=== PATIENT | male | born 1995 | race African-American/Black ===

== ENCOUNTER 2024-04-04 10:05 | Emergency (ER) | payer BC, SELFPAY ==
[2024-04-04 10:21] VITALS: BP 146/86
--- NOTE | 2024-04-04 12:51 | ED.GENMED ---
History of Present Illness
General
Chief Complaint: Heart Rate Problem
Source: patient
Time Seen by Provider: 04/04/24 11:41
Travel History
Have you had any contact with someone who has COVID-19?: No
Do you have any symptoms of coronavirus? Fever > 100 degrees, chills, cough, shortness of breath, sore throat, loss of taste or smell, muscle aches, or headache?: No
History of Present Illness
History of Present Illness:
28-year-old gentleman presents to the emergency room complaining of skipped beats and irregular heartbeat. Patient has been experiencing the symptoms for the past 3 to 4 days. They are a bit more prominent at night. He denies any chest pain or
shortness of breath. He does not recall ever having any episodes like this before. He does drink a lot of caffeinated products.
Past History
Past History
ED Past Medical History: Asthma
ED Past Surgical History: None
Social History
Tobacco: Non-smoker
Alcohol: None
Drug: None
Phy Exam
Physical Exam
Physical Exam:
General: Awake, Alert, Oriented X3. No acute distress.
Vitals: unremarkable
Head: Atraumatic
Eyes: Pupils equal, EOMI
Throat: Airway intact, no exudates
Neck: Trachea midline
Lungs: Clear and equal b/l
Heart: Regular rate, no murmurs
Abd: Soft, Nontender, No pulsatile mass
Neuro: Nonfocal
Skin: Warm, dry, no rash
Extremities: pulses equal b/l, no edema
Course
Orders/Labs/Results
Orders:
Orders
04/04/24 10:07
ECG [Electrocardiogram (*1)] Urgent
Reason for Study: Palpitations
04/04/24 10:08
EKG- Treatment ONCE
04/04/24 12:50
Cardiac Monitoring- Treatment ONCE
Basic Metabolic Panel Urgent
Magnesium Urgent
TSH Reflex To Free T4 Urgent
Vital Signs
Initial and Last Documented VS:
Initial Vital Signs
Temp Pulse BP Pulse Ox
98.9 F 73 146/86 99
04/04/24 10:21 04/04/24 10:21 04/04/24 10:21 04/04/24 10:21
Last Documented Vital Signs
Temp Pulse BP Pulse Ox
98.9 F 73 146/86 99
04/04/24 10:21 04/04/24 10:21 04/04/24 10:21 04/04/24 10:21
*EKG
Interpreted by ED Provider?: Yes
Interpretation: normal
Comparison EKG: no comparison EKG present
Heart Rate: 70
Rate: normal
Rhythm: sinus
[place]: normal axis
Interval: normal interval
QRS Pattern: normal QRS
Ischemia: no ischemia
*Label Sewer Interpretation
Rate: normal
Interpretation: normal
Rhythm: sinus
*Critical Care Note
Total Time (30-74mins, 75-104mins- exclusive of procedures): Not Applicable
ED Attending Note
-
Portions of this chart may have been created with voice recognition software.� Occasional wrong word or��sound alike� substitutions may have occurred due to the inherent limitations of voice recognition software.
Discharge Plan
Departure
Prescriptions:
No Action
albuterol sulfate 1 PUFF HFA aerosol inhaler
1 puff inhalation R Q4HPRN PRN (Reason: asthma)
Referrals:
Leigh Royal DO [Family Provider] -
Interventions
Interventions:
*Risk Screen - Suicide Last Done: 04/04/24 11:19
*General Assessment Last Done: 04/04/24 11:19
*Neglect/Abuse Screening Last Done: 04/04/24 11:19
*ED COVID-19 Vaccine History Last Done: 04/04/24 11:19
ED- Cardiac Assessment Last Done: 04/04/24 11:19
ED- Pulmonary Assessment Last Done: 04/04/24 11:19
Discharge Date and Time
Print Language: CZECH
--- NOTE | 2024-04-04 13:47 | ED.GENMED ---
History of Present Illness
General
Chief Complaint: Heart Rate Problem
Source: patient
Time Seen by Provider: 04/04/24 11:41
Travel History
Have you had any contact with someone who has COVID-19?: No
Do you have any symptoms of coronavirus? Fever > 100 degrees, chills, cough, shortness of breath, sore throat, loss of taste or smell, muscle aches, or headache?: No
History of Present Illness
History of Present Illness:
28-year-old male presents to the emergency room complaining of palpitations. Patient has been experiencing extra beats or skipped beats for the past 3 to 4 days. No true chest pain. No shortness of breath. Patient does consume caffeinated
beverages. He denies any other stimulants.
Past History
Past History
ED Past Medical History: Asthma
ED Past Surgical History: None
Social History
Tobacco: Non-smoker
Alcohol: None
Drug: None
Phy Exam
Physical Exam
Physical Exam:
General: Awake, Alert, Oriented X3. No acute distress.
Vitals: unremarkable
Head: Atraumatic
Eyes: Pupils equal, EOMI
Throat: Airway intact, no exudates
Neck: Trachea midline
Lungs: Clear and equal b/l
Heart: Regular rate, no murmurs
Abd: Soft, Nontender, No pulsatile mass
Neuro: Nonfocal
Skin: Warm, dry, no rash
Extremities: pulses equal b/l, no edema
Course
Orders/Labs/Results
Orders:
Orders
04/04/24 10:07
ECG [Electrocardiogram (*1)] Urgent
Reason for Study: Palpitations
04/04/24 10:08
EKG- Treatment ONCE
04/04/24 12:50
Cardiac Monitoring- Treatment ONCE
04/04/24 13:07
TSH Reflex To Free T4 Urgent
04/04/24 13:54
Basic Metabolic Panel Urgent
Magnesium Urgent
Vital Signs
Initial and Last Documented VS:
Initial Vital Signs
Temp Pulse BP Pulse Ox
98.9 F 73 146/86 99
04/04/24 10:21 04/04/24 10:21 04/04/24 10:21 04/04/24 10:21
Last Documented Vital Signs
Temp Pulse BP Pulse Ox
98.9 F 73 146/86 99
04/04/24 10:21 04/04/24 10:21 04/04/24 10:21 04/04/24 10:21
MDM/Problems Addressed
Differential Diagnosis Includes:
PVC, PACs, hypothyroidism, electrode abnormality
*Pulse Oximetry
Patient hypoxic: no
*EKG
Interpreted by ED Provider?: Yes
Interpretation: normal
Heart Rate: 70
Rate: normal
Rhythm: sinus
[place]: normal axis
Interval: normal interval
QRS Pattern: normal QRS
Ischemia: no ischemia
*Assistant Branch Manager Interpretation
Rate: normal
Interpretation: normal
Rhythm: sinus
*Critical Care Note
Total Time (30-74mins, 75-104mins- exclusive of procedures): Not Applicable
ED Attending Note
-
Portions of this chart may have been created with voice recognition software.� Occasional wrong word or��sound alike� substitutions may have occurred due to the inherent limitations of voice recognition software.
Discharge Plan
Departure
Condition: Good
Discharge Problem:
Heart palpitations
Instructions: Palpitations (DC)
Prescriptions:
No Action
albuterol sulfate 1 PUFF HFA aerosol inhaler
1 puff inhalation R Q4HPRN PRN (Reason: asthma)
Referrals:
Leigh Royal DO [Family Provider] -
Alesha George MD [Active] -
Interventions
Interventions:
*Risk Screen - Suicide Last Done: 04/04/24 11:19
*General Assessment Last Done: 04/04/24 11:19
*Neglect/Abuse Screening Last Done: 04/04/24 11:19
*ED COVID-19 Vaccine History Last Done: 04/04/24 11:19
ED- Cardiac Assessment Last Done: 04/04/24 11:19
ED- Pulmonary Assessment Last Done: 04/04/24 11:19
Discharge Date and Time
Print Language: SAMI
[2024-04-04 14:27] LABS: TSH Reflex To Free T4 2.37 uIU/ml (0.47-4.68)
[2024-04-04 14:28] LABS: Blood Urea Nitrogen 15 mg/dl (9-20); Calcium 9.5 mg/dl (8.4-10.2); Carbon Dioxide 30 mmol/L (22-30); Chloride 103 mmol/L (98-107); Glucose 91 mg/dl (70-99); Potassium 4.3 mmol/L (3.5-5.1); Sodium 137 mmol/L (135-145); eGFR > 60.00
[2024-04-04 15:04] VITALS: BP 140/80
== END 2024-04-04 15:04 | disposition home or self-care (01) ==
LOC: EMR 10:05
PROVIDERS: EMERGENCY PHYSICIAN Emergency Medicine; FAMILY PHYSICIAN Emergency Medicine
DX: R00.0 Tachycardia, unspecified (principal)
CPT/HCPCS: 99283; 80048; 83735; 84443; 93005